=== PATIENT | male | born 1955 | race Caucasian/White ===

== ENCOUNTER → 2019-01-24 | Outpatient (CLI) | payer OTHER | END | disposition home or self-care (01) | LOC: MRI 13:18 | DX: S93.402D Sprain of unspecified ligament of left ankle, subsequent encounter (principal); S93.602D Unspecified sprain of left foot, subsequent encounter; S90.02XD Contusion of left ankle, subsequent encounter; M19.072 Primary osteoarthritis, left ankle and foot; M25.472 Effusion, left ankle; M72.2 Plantar fascial fibromatosis; X58.XXXD Exposure to other specified factors, subsequent encounter; Z91.81 History of falling ==